=== PATIENT | female | born 1965 | race Caucasian/White ===

== ENCOUNTER 2017-02-10 08:09 | Emergency (ER) | payer OTHER ==
[2017-02-10 08:20] VITALS: BP 147/74
--- NOTE | 2017-02-10 10:23 | UC ---
Throat Pain/Nasal Greg HPI - HPI Summary HPI Summary: Environmental allergies seem particularly bad yesterday and today face feels red and swollen - History of Current Complaint Chief Complaint: UCAllergicReaction Stated Complaint: SKIN COMPLAINT Time Seen by Provider: 02/10/17 10:11 Hx Obtained From: Patient Hx Last Menstrual Period: 01/30/17 ?: No Onset/Duration: Sudden Onset, Lasting Days - 2, Still Present Severity: Mild Associated Signs & Symptoms: Positive: Sinus Discomfort, Nasal Discharge Related History: Seasonal Allergies - Allergies/Home Medications Allergies/Adverse Reactions: Allergies Allergy/AdvReac Type Severity Reaction Status Date / Time No Known Allergies Allergy Verified 02/10/17 08:19 Home Medications: Home Medications Cetirizine* [ZyrTEC 10 MG TAB*] 10 mg PO DAILY 02/10/17 [History Confirmed 02/10] PMH/Surg Hx/FS Hx/Imm Hx Previously Healthy: Yes - Surgical History Surgical History: None - Family History Known Family History: Positive: None Family History: No cardiovascular issues in family lineage - Social History Occupation: Employed Full-time Lives: With Family Alcohol Use: None Substance Use Type: None Smoking Status (MU): Never Smoked Tobacco Review of Systems Constitutional: Negative Skin: Negative Eyes: Drainage, Eye Redness ENT: Nasal Discharge Respiratory: Negative Cardiovascular: Negative Gastrointestinal: Negative Genitourinary: Negative Motor: Negative Neurovascular: Negative Musculoskeletal: Negative Neurological: Negative Psychological: Negative All Other Systems Reviewed And Are Negative: Yes Physical Exam Triage Information Reviewed: Yes Appearance: Well-Appearing, No Pain Distress, Well-Nourished Vital Signs: Initial Vital Signs Temp 98.5 F 02/10/17 08:16 Pulse 88 02/10/17 08:16 Resp 16 02/10/17 08:16 BP 147/74 02/10/17 08:16 Pulse Ox 99 02/10/17 08:16 Vital Signs Reviewed: Yes Eye Exam: Normal Eyes: Positive: Conjunctiva Clear, Discharge - clear ENT Exam: Normal ENT: Positive: Normal ENT inspection, Hearing grossly normal, Pharynx normal, Nasal congestion, Nasal drainage, TMs normal. Negative: Tonsillar swelling, Tonsillar exudate, Trismus, Muffled/hoarse voice Dental Exam: Normal Neck exam: Normal Neck: Positive: Supple, Nontender Respiratory Exam: Normal Respiratory: Positive: Chest non-tender, Lungs clear, Normal breath sounds, No respiratory distress, No accessory muscle use Cardiovascular Exam: Normal Cardiovascular: Positive: RRR, No Murmur, Pulses Normal, Brisk Capillary Refill Musculoskeletal Exam: Normal Musculoskeletal: Positive: Strength Intact, ROM Intact, No Edema Neurological Exam: Normal Neurological: Positive: Alert, Muscle Tone Normal Psychological Exam: Normal Skin Exam: Normal Throat Pain/Nasal Course/Dx - Course Assessment/Plan: use zyrtec daily, add flonase daily and use Benadryl prn follow Blood Pressure with Dr. Jiménez - Differential Dx/Diagnosis Differential Diagnosis/HQI/PQRI: Pharyngitis, Sinusitis, URI Provider Diagnoses: Enviromental Allergic, Elevated Blood Pressure no dx of hypertension Discharge - Discharge Plan Condition: Stable Disposition: HOME Prescriptions: Diphenhydramine HCl [Benadryl Allergy 25 MG TAB] 25 - 50 mg PO QID #30 tab Fluticasone NASAL SPRAY 50MCG* [Flonase NASAL SPRAY 50MCG*] 2 spray BOTH NARES DAILY #1 btl Patient Education Materials: Allergic Rhinitis (ED), How to Use Nasal [place] (ED ), Cetirizine (By mouth), Fluticasone (Into the nose), Diphenhydramine (By mouth ), DASH Eating Plan (ED), Hypertension (ED) Referrals: David Jiménez MD [Primary Care Provider] - 2 Weeks
== END 2017-02-10 10:37 | disposition home or self-care (01) ==
LOC: UCEAST 08:09
DX: J31.0 Chronic rhinitis (principal); R03.0 Elevated blood-pressure reading, without diagnosis of hypertension
CPT/HCPCS: 99211; G0463